=== PATIENT | female | born 1995 | race Caucasian/White ===

== ENCOUNTER 2017-08-03 17:20 | Inpatient (IN) | payer BC, MEDICAID ==
[2017-08-03] MEDS ORDERED: DEXTROSE 5%-LACTATED RINGERS 1,000 ML IV PRN (18:12)
[2017-08-03] MEDS ORDERED: OXYTOCIN/DEXTROSE 5%-WATER 30 UNITS/500 ML BAG IV ONE (18:12)
[2017-08-03] MEDS ORDERED: ONDANSETRON HCL/PF 2 MG/ML VIAL IV PRN (18:12)
[2017-08-03] MEDS ORDERED: RINGER'S SOLUTION,LACTATED 1,000 ML IV PRN (18:12)
[2017-08-03] MEDS: MISOPROSTOL 100 MCG TABLET VG PRN ×2 (18:38→22:45)
[2017-08-04] MEDS: MISOPROSTOL 100 MCG TABLET VG PRN ×2 (02:46→07:00)
--- NOTE | 2017-08-04 09:03 | PN ---
Progess Note - Interim Narrative: 08/04/17 08:52 Subjective-patient is comfortable, feels contractions some edematous she relates that 3 out of 10, denies headache, blurry vision, epigastric pain. She has no complaints. Objective- SVE- fingertip/25/-3, soft, difficult exam due to patient discomfort FHTs- 140s, moderate variability, positive accelerations, no decelerations [place]- every 5 or more minutes contractions with some uterine irritability in between Assessment and plan- Labor-induction with Cytotec placement 4 GBS status-negative Preeclampsia-without severe features, blood pressures continued to be mildly elevated and patient is asymptomatic at this time, continue to monitor closely Continue current plan of care.
[2017-08-04] MEDS: RINGER'S SOLUTION,LACTATED 1,000 ML IV ONE (11:15)
[2017-08-04] MEDS ORDERED: ONDANSETRON HCL/PF 2 MG/ML VIAL IV PRN (11:54)
[2017-08-04] MEDS ORDERED: NALOXONE HCL 1 MG/1 ML SYRG IV PRN (11:54)
[2017-08-04] MEDS ORDERED: BUPIVACAINE HCL/PF 30 ML VIAL EP SCH (12:00)
[2017-08-04] MEDS: BUPIVACAINE HCL/0.9 % NACL/PF 250 ML EP PRN (12:27)
--- NOTE | 2017-08-04 12:28 | OR ---
Anesthesia Procedure Note - Anesthesia Procedure Note Date of Service: 08/04/17 Narrative: Vital Signs - Last Taken Temp 36.7 C 08/03/17 21:05 Pulse 108 H 08/04/17 11:56 Resp 18 08/04/17 11:56 BP 138/93 08/04/17 11:56 Pulse Ox 98 08/04/17 11:56 O2 Oxygen Delivery Method Room Air 08/04/17 12:27 ANESTHESIA PROCEDURE NOTE Date of Procedure: 08/04/2017. Time of procedure: 06/21/2004. Performed by: Junaid Gutierrez CRNA Hospice Nurse: None. Preprocedure diagnosis: Active labor. Post procedure diagnosis: Same. Procedure: Insertion of labor epidural. Indications: The patient is a 22 -year-old female in active labor requesting labor epidural for pain management. Findings: See below. Details of the procedure: The patient was placed in a sitting position. DuraPrep as well as Betadine swabs X3 was applied to the patient's back. Patient was then draped in a sterile fashion. Lidocaine 1% was infiltrated to the skin and subcutaneous tissues at the level of the L3-4 interspace. The epidural space was identified using a 18-gauge Tuohy needle with loss-of- resistance technique. Epidural catheter was inserted to a depth of 15 centimeters at skin. Negative test dose was elicited using 3 mL of 1.5% preservative-free lidocaine plus epinephrine 1 200,000. The epidural catheter was then taped and secured in place. A loading dose of 8 mL of 0.25% preservative-free bupivacaine was administered to the epidural catheter after negative aspiration for blood and CSF. EBL: Minimal. Fluids: N/A. Specimen: N/A. Post procedure condition: The patient tolerated the procedure well. No complications were noted. Thank you for this consultation. Junaid Gutierrez CRNA
--- NOTE | 2017-08-04 13:04 | PN ---
Progess Note - Interim Narrative: 08/04/17 13:02 Subjective-comfortable after epidural Objective- SVE- 2.5/75/-3, membranes stripped, Allen bulb placed with 60 mL's of fluid FHTs- 145, moderate variability, positive accelerations, no decelerations [place]- irregular Assessment and plan- Labor-induction, when Allen balloon is expelled plan for amniotomy. Pitocin now GBS status-negative Preeclampsia-Continue to monitor Continue current plan of care.
--- NOTE | 2017-08-04 16:06 | PN ---
Progess Note - Interim Narrative: 08/04/17 16:05 Subjective-comfortable after epidural Objective- SVE- /-3, [place]ington balloon removed, AROM with copious clear fluid FHTs- 145, moderate variability, positive accelerations, no decelerations [place]- irregular on 6 of pitocin Assessment and plan- Labor-induction, continue titrating Pitocin GBS status-negative Preeclampsia-Continue to monitor Continue current plan of care.
[2017-08-05] MEDS: BUPIVACAINE HCL/0.9 % NACL/PF 250 ML EP PRN (00:46)
[2017-08-05] MEDS: MISOPROSTOL 200 MCG TABLET RC ONE ×2 (03:54→05:04)
[2017-08-05] MEDS: RINGER'S SOLUTION,LACTATED 1,000 ML IV ONE (04:01)
[2017-08-05] MEDS ORDERED: GLYCERIN/WITCH HAZEL LEAF 40 APPL BOX TP PRN (04:13)
[2017-08-05] MEDS ORDERED: BISACODYL 10 MG SUPP.RECT RC PRN (04:13)
[2017-08-05] MEDS ORDERED: MISOPROSTOL 100 MCG TABLET RC ONE (04:13)
[2017-08-05] MEDS ORDERED: OXYTOCIN/DEXTROSE 5%-WATER 30 UNITS/500 ML BAG IV ONE (04:13)
[2017-08-05] MEDS ORDERED: SENNOSIDES 8.6 MG TABLET PO PRN (04:13)
[2017-08-05] MEDS ORDERED: HYDROCORTISONE 30 APPL TUBE TP PRN (04:13)
[2017-08-05] MEDS ORDERED: oxyCODONE HCL/ACETAMINOPHEN 1 TAB TABLET PO PRN (04:13)
[2017-08-05] MEDS ORDERED: BENZOCAINE/MENTHOL 81 SPRAY CAN TP PRN (04:13)
--- NOTE | 2017-08-05 04:19 | OR ---
Operative Report - Dictated Report Narrative: Spontaneous Vaginal Delivery Viable male with APGARS of 8 at 1 minute and 9 at 5 minutes. He delivered at 0337. Presentation was YANELI. A loose nuchal cord was reduced over the head prior to delivery of the shoulders. The right anterior shoulder delivered with gentle downward traction followed by the posterior shoulder and the remainder of the baby. Baby was placed on the maternal abdomen and dried and stimulated and spontaneous cry was noted. The cord was clamped and cut after 60 seconds. Weight: 3799 g Placenta was delivered spontaneously and intact. Vigorous bleeding was noted. Bimanual exam expressed no clots and the placenta appeared intact. Fundal massage was performed, Pitocin increased to 30 milliunits and Cytotec 1000 g was placed rectally. Patient felt nauseous and appeared pale. Blood pressures dropped to 70s over 30s and patient was laid flat and fluid bolus performed. Bleeding had subsided at this time. Patient was feeling better although blood pressures were still in the mid 70s over 40s. Her pulse was up to 150s and was normalizing and patient's color and symptoms and blood pressure continued to improve. Second-degree midline vaginal laceration that was repaired with 2-0 Vicryl. Estimated blood loss: 500 ml Mother and baby tolerated delivery well. History for MU Definition: * The number of deliveries resulting in a live the patient experienced prior to current hospitalization * The previous delivery of live twins or any live multiple gestation is considered one live event. *If primagravida or nulliparous is documented select zero for the number of previous live births. Live Events: 0
[2017-08-05] MEDS: oxyCODONE HCL/ACETAMINOPHEN 1 TAB TABLET PO PRN ×3 (05:07→19:05)
[2017-08-05] MEDS: DOCUSATE SODIUM 100 MG CAPSULE PO SCH ×2 (11:16→21:03)
[2017-08-05] MEDS: IBUPROFEN 800 MG TABLET PO PRN ×2 (11:19→19:05)
[2017-08-05] MEDS: ENOXAPARIN SODIUM 40 MG/0.4 ML SYRG SC SCH (11:19)
[2017-08-05] MEDS ORDERED: RHO(D) IMMUNE GLOBULIN 300 MCG DISP.SYRIN IM ONE (12:45)
[2017-08-06] MEDS: oxyCODONE HCL/ACETAMINOPHEN 1 TAB TABLET PO PRN ×2 (08:42→15:39)
[2017-08-06] MEDS: IBUPROFEN 800 MG TABLET PO PRN ×2 (08:42→15:39)
[2017-08-06] MEDS: DOCUSATE SODIUM 100 MG CAPSULE PO SCH ×2 (08:43→20:34)
[2017-08-06] MEDS: ENOXAPARIN SODIUM 40 MG/0.4 ML SYRG SC SCH (15:03)
--- NOTE | 2017-08-06 16:33 | PN ---
Subjective - Date and Time Seen Date: 08/06/17 Time: 16:32 Objective - Vitals Vitals: Last Vital Signs Temp 36.6 C 08/06/17 09:54 Pulse 108 H 08/06/17 09:54 Resp 20 08/06/17 09:54 BP 135/60 08/06/17 09:54 Pulse Ox 97 08/05/17 23:30 Patient denies complaints. No headache, visual changes, epigastric pain, or edema. Lochia wnl Abdomen - soft, nontender Uterus - firm, at umbilicus - 1 No calf tenderness DTR-2/4, no clonus Impression: day #1 - s/p spontaneous vaginal delivery. Mild preeclampsia-resolving. Plan: Continue routine care Cauti Physician Documentation - Urinary Catheter Management Urethral (Allen) Date of Insertion: 08/04/17 Time of Insertion: 12:45
[2017-08-07] MEDS: IBUPROFEN 800 MG TABLET PO PRN (07:04)
[2017-08-07 07:35] VITALS: BP 134/72
--- NOTE | 2017-08-07 08:50 | PN ---
Subjective - Date and Time Seen Date: 08/07/17 Time: 08:49 Objective - Vitals Vitals: Last Vital Signs Temp 36.7 C 08/07/17 07:27 Pulse 96 08/07/17 07:27 Resp 16 08/07/17 07:27 BP 134/72 08/07/17 07:27 Pulse Ox 98 08/07/17 07:27 Patient denies complaints. Lochia wnl Abdomen - soft, nontender Uterus - firm, at umbilicus - 2 No calf tenderness Impression: day #2 - s/p spontaneous vaginal delivery. Preeclampsia- resolved. Plan: Routine discharge instructions. Preeclampsia precautions. Follow-up in one week for blood pressure check. Cauti Physician Documentation - Urinary Catheter Management Urethral (Allen) Date of Insertion: 08/04/17 Time of Insertion: 12:45
== END 2017-08-07 11:30 | disposition home or self-care (01) | DRG 774 ==
LOC: OB 17:20
PROVIDERS: ADMIT Obstetrics & Gynecology Gynecologic Oncology; ATTEND Obstetrics & Gynecology Gynecologic Oncology
PROC: 10E0XZZ Delivery of Products of Conception, External Approach (ICD-10-PCS; principal; 2017-08-05)
PROC: 0KQM0ZZ Repair Perineum Muscle, Open Approach (ICD-10-PCS; 2017-08-05)
PROC: 10907ZC Drainage of Amniotic Fluid, Therapeutic from Products of Conception, Via Natural or Artificial Opening (ICD-10-PCS; 2017-08-05)
PROC: 4A1HXCZ Monitoring of Products of Conception, Cardiac Rate, External Approach (ICD-10-PCS; 2017-08-05)
PROC: 00HU33Z Insertion of Infusion Device into Spinal Canal, Percutaneous Approach (ICD-10-PCS; 2017-08-05)
DX: O14.04 Mild to moderate pre-eclampsia, complicating childbirth (principal); O72.1 Other immediate postpartum hemorrhage; Z68.42 Body mass index [BMI] 45.0-49.9, adult; O70.1 Second degree perineal laceration during delivery; O69.81X0 Labor and delivery complicated by cord around neck, without compression, not applicable or unspecified; O99.02 Anemia complicating childbirth; D64.9 Anemia, unspecified; E66.9 Obesity, unspecified; Z3A.38 38 weeks gestation of pregnancy; Z37.0 Single live birth

== ENCOUNTER 2020-02-21 05:55 | Inpatient (IN) ==
[2020-02-21] MEDS ORDERED: RINGER'S SOLUTION,LACTATED 1,000 ML IV ONE (06:02)
[2020-02-21] MEDS ORDERED: OXYTOCIN/DEXTROSE 5%-WATER 30 UNITS/500 ML BAG IV ONE (06:02)
[2020-02-21] MEDS ORDERED: BUTORPHANOL TARTRATE 2 MG/ML VIAL IV PRN ×2 (06:02)
[2020-02-21] MEDS ORDERED: LIDOCAINE HCL 50 ML VIAL PERI PRN (06:02)
[2020-02-21] MEDS ORDERED: ONDANSETRON 4 MG TAB.RAPDIS PO PRN (06:02)
[2020-02-21 06:29] LABS: Hematocrit 34.4 % (37.0-47.0); Hemoglobin 11.3 gm/dL (12.5-16.0); Mean Cell Volume 88.7 fl (78-100); Mean Corpuscular Hemoglobin 29.1 pg (27-31); Mean Corpuscular Hgb Conc 32.8 g/dl (32-36); Mean Platelet Volume 9.9 fl (8-12.5); Neutrophil # 6.6 K/mm3 (1.3-6.0); Neutrophil % 71.1 % (42-75.0); Platelet Count 245 K/mm3 (150-450); Red Blood Count 3.88 M/mm3 (4.2-5.4); Red Cell Distribution Width 13.2 % (11.5-14.0); White Blood Count 9.3 K/mm3 (4.0-10.5)
[2020-02-21] MEDS: RINGER'S SOLUTION,LACTATED 1,000 ML IV PRN ×3 (06:40→14:30)
[2020-02-21 06:41] LABS: Albumin * 2.6 gm/dl (3.4-5.0); Anion Gap 15.8 mmol/L (6.8-13.8); BUN/Creatinine Ratio 9.4 (9.0-21.6); Bilirubin, Total 0.3 mg/dL (0.0-1.1); Ca. Corrected For Albumin 9.8 mg/dL (8.4-10.2); Carbon Dioxide 20.7 mmol/L (24-32.6); Potassium 3.5 mmol/L (3.4-4.6); Total Protein 6.6 gm/dL (6.2-8.2)
[2020-02-21] MEDS ORDERED: OXYTOCIN/0.9 % SODIUM CHLORIDE 30 UNITS/500 ML BAG IV ONE ×2 (07:00→22:34)
--- NOTE | 2020-02-21 08:30 | HP ---
Chief Complaint - Chief Complaint Date of Service: 02/21/20 Time of Service: 08:26 Chief Complaint: Induction of labor History of Present Illness: 24 year old at 39w 0d who presents to L&D for a medical IOL due to CHTN. She denies ctx, vb or lof. Fetus is active. Medical History (Last Reviewed 02/21/20 @ 08:27 by Peggy Muñoz MD) Obesity Onset Date: ~01/11/17 Preeclampsia Onset Date: ~07/2017 Surgical History: Surgical History (Last Reviewed 02/21/20 @ 08:27 by Peggy Muñoz MD) H/O wisdom tooth extraction Onset Date: ~2013 Family History: Family History (Last Reviewed 02/21/20 @ 08:27 by Peggy Muñoz MD) Mother Alive and well Father Alive and well Social History: (Last Reviewed 02/21/20 @ 08:27 by Peggy Muñoz MD) Social History: adopted: No Marital status: household members: children, significant other number of children: 1 current occupational status: employed current occupation: [employer] education level completed: some college, no degree Sexually Active: Yes Service: No Tobacco: Smoking Status: Never smoker Alcohol: alcohol intake: never Substance Use: substance use type: does not use Dietary Habits: caffeine: No Pets: pets and animals: cat(s) Review Of Systems (GEN) - Review of Systems Generalized/Overall Review: Present: No Symptoms Reported Misc: All systems neg except as marked Allergies/Adverse Reactions: Allergies Allergy/AdvReac Type Severity Reaction Status Date / Time azithromycin [From Zithromax] Allergy Hives Verified 02/21/20 06:11 Home Medications: HOME MEDICATIONS Vits96/Iron Fum/Folic [ S] 1 tab PO DAILY #90 tab 08/07/17 [Last Taken 02/20/20] ferrous sulfate 325 mg (65 mg iron) tablet 325 mg PO DAILY 08/17/19 [Last Taken 02/20/20] aspirin 81 mg chewable tablet 2 tab PO DAILY tab 11/08/19 [Last Taken 02/20/20] Exam - Exam Vital Signs: Vital Signs - Last Taken Temp 36.7 C 02/21/20 06:15 Pulse 104 H 02/21/20 06:15 Resp 16 02/21/20 06:15 BP 136/80 02/21/20 06:15 Pulse Ox 97 02/21/20 06:15 Constitutional: Present: Alert, Oriented x3, Cooperative, No distress ENT Exam: Present: hearing grossly normal Eye Exam: bilateral eye: normal inspection Neck: Present: normal inspection Back Exam: Present: normal inspection Respiratory: Present: lungs clear, normal breath sounds, no respiratory distress Cardiovascular/Chest: Present: regular rate, rhythm Abdomen: Present: soft, nontender, nondistended, no rebound tenderness /Rectal: Present: Other - 1.5/50/-3 Extremity: Present: non-tender, no calf tenderness Skin Exam: Present: normal color, warm/dry, no cyanosis Appearance: Present: appropriate appearance, appropriate insight, neat, no memory impairment Eye contact: Present: cooperative, good eye contact, normal speech Thoughts: Present: normal thought pattern Diagnostic Studies: Abnormal Lab Results 02/21/20 02/21/20 Range/Units 06:20 06:20 RBC 3.88 L (4.2-5.4) M/mm3 Hgb 11.3 L (12.5-16.0) gm/dL Hct 34.4 L (37.0-47.0) % Immature Gran % (Auto) 0.90 H (0.001-0.429) % Immature Gran # (Auto) 0.08 H (0.000-0.0310) K/mm3 Neutrophils # 6.6 H (1.3-6.0) K/mm3 Carbon Dioxide 20.7 L (24-32.6) mmol/L Anion Gap 15.8 H (6.8-13.8) mmol/L Random Glucose 141 H (70-110) mg/dL ALT 14 L (19-67) U/L Albumin 2.6 L (3.4-5.0) gm/dl Laboratory Results WBC 9.3 K/mm3 (4.0-10.5) 02/21/20 06:20 RBC 3.88 M/mm3 (4.2-5.4) L 02/21/20 06:20 Hgb 11.3 gm/dL (12.5-16.0) L 02/21/20 06:20 Hct 34.4 % (37.0-47.0) L 02/21/20 06:20 MCV 88.7 fl (78-100) 02/21/20 06:20 MCH 29.1 pg (27-31) 02/21/20 06:20 MCHC 32.8 g/dl (32-36) 02/21/20 06:20 RDW 13.2 % (11.5-14.0) 02/21/20 06:20 Plt Count 245 K/mm3 (150-450) 02/21/20 06:20 MPV 9.9 fl (8-12.5) 02/21/20 06:20 Immature Gran % (Auto) 0.90 % (0.001-0.429) H 02/21/20 06:20 Immature Gran # (Auto) 0.08 K/mm3 (0.000-0.0310) H 02/21/20 06:20 Neutrophils % 71.1 % (42-75.0) 02/21/20 06:20 Lymphocytes % 21.6 % (20-51) 02/21/20 06:20 Monocytes % 5.3 % (0.0-9) 02/21/20 06:20 Eosinophils % 0.8 % (0.0-3.0) 02/21/20 06:20 Basophils % 0.3 % (0.0-1.0) 02/21/20 06:20 Nucleated RBC % 0.0 k/mm3 (0-1) 02/21/20 06:20 Neutrophils # 6.6 K/mm3 (1.3-6.0) H 02/21/20 06:20 Lymphocytes # 2.00 k/mm3 (1.5-3.5) 02/21/20 06:20 Monocytes # 0.5 k/mm3 (0.0-1.0) 02/21/20 06:20 Eosinophils # 0.1 k/mm3 (0.0-0.7) 02/21/20 06:20 Absolute Basophils 0.0 k/mm3 (0.0-0.1) 02/21/20 06:20 Sodium 135 mmol/L (132-142) 02/21/20 06:20 Plasma Sodium 136 mmol/L (130-142) 02/21/20 06:20 Potassium 3.5 mmol/L (3.4-4.6) 02/21/20 06:20 Chloride 102 mmol/L (97-106) 02/21/20 06:20 Carbon Dioxide 20.7 mmol/L (24-32.6) L 02/21/20 06:20 Anion Gap 15.8 mmol/L (6.8-13.8) H 02/21/20 06:20 BUN 8 mg/dL (3-23) 02/21/20 06:20 Creatinine 0.85 mg/dL (0.4-1.4) 02/21/20 06:20 Est GFR (Non-Af Amer) 88 mL/min (60-130) D 02/21/20 06:20 BUN/Creatinine Ratio 9.4 (9.0-21.6) 02/21/20 06:20 Random Glucose 141 mg/dL (70-110) H 02/21/20 06:20 Calcium 9.0 mg/dL (7.9-10.9) 02/21/20 06:20 Calcium Adj for Albumin 9.8 mg/dL (8.4-10.2) 02/21/20 06:20 Total Bilirubin 0.3 mg/dL (0.0-1.1) 02/21/20 06:20 AST 17 U/L (0-48) 02/21/20 06:20 ALT 14 U/L (19-67) L 02/21/20 06:20 Alkaline Phosphatase 122 U/L (50-170) 02/21/20 06:20 Total Protein 6.6 gm/dL (6.2-8.2) 02/21/20 06:20 Albumin 2.6 gm/dl (3.4-5.0) L 02/21/20 06:20 Blood Type A Negative 02/21/20 06:20 Antibody Screen Negative 02/21/20 06:20 Assessment/Plan - Narrative Narrative: 24 year old at 39w 0d 1. IOL for CHTN: the patient is currently on pitocin 2. GBS negative: prophylaxis not indicated 3. Rh negative: s/p Rhogam, collect cord blood
--- NOTE | 2020-02-21 11:55 | PN ---
Kelsey Note - Interim Date: 02/21/20 Time: 11:54 Narrative: 02/21/20 11:54 Patient uncomfortable with examination cvx 2/70/-2 Attempted AROM but patient cannot tolerate exam Wait until patient has epidural to AROM FHT cat 1
[2020-02-21] MEDS ORDERED: BUPIVACAINE HCL/0.9 % NACL/PF 250 ML EP PRN (13:27)
[2020-02-21] MEDS ORDERED: NALOXONE HCL 1 MG/1 ML SYRG IV PRN (13:27)
[2020-02-21] MEDS ORDERED: fentaNYL CITRATE/PF 50 MCG/ML AMPUL IT SCH (13:30)
--- NOTE | 2020-02-21 13:46 | ANES ---
Anesthesia Pre Procedure Eval Vitals/Labs: Last Vital Signs Temp 36.7 C 02/21/20 06:15 Pulse 104 H 02/21/20 06:15 Resp 16 02/21/20 06:15 BP 136/80 02/21/20 06:15 Pulse Ox 97 02/21/20 06:15 HOME MEDICATIONS Vits96/Iron Fum/Folic [ S] 1 tab PO DAILY #90 tab 08/07/17 [Last Taken 02/20/20] ferrous sulfate 325 mg (65 mg iron) tablet 325 mg PO DAILY 08/17/19 [Last Taken 02/20/20] aspirin 81 mg chewable tablet 2 tab PO DAILY tab 11/08/19 [Last Taken 02/20/20] Allergies/Adverse Reactions: Allergies Allergy/AdvReac Type Severity Reaction Status Date / Time azithromycin [From Zithromax] Allergy Hives Verified 02/21/20 06:11 - Planned Procedure Planned Procedure: medical induction for chonic hypertension Medication List Reviewed:: Yes Allergies Verified: Yes Medical History (Last Reviewed 02/21/20 @ 13:44 by Berlin Yoder CRNA) Obesity Onset Date: ~01/11/17 Preeclampsia Onset Date: ~07/2017 Surgical History (Last Reviewed 02/21/20 @ 13:44 by Berlin Yoder CRNA) H/O wisdom tooth extraction Onset Date: ~2013 Family History (Last Reviewed 02/21/20 @ 13:44 by Berlin Yoder CRNA) Mother Alive and well Father Alive and well - Family Anesthesia History Family History:: no untoward family reactions to anesthesia, no familial bleeding tendencies, no family history of clotting disorders, no family history of premature - Airway/Neck/Teeth Within Normal Limits:: Yes Teeth Condition: intact Neck Exam: full range of motion Mallampatti Score: 2 Thyromental (T-M) distance: > 6 cm Mandibulo Hyoid distance: > 3 cm - Respiratory Respiratory Physical: lungs clear Sleep Apnea currently treated: No Sleep Apnea by current assessment: No - Cardiovascular Tolerate Activity: Fair Heart Sounds: S1 & S2, Regular - Gastrointestinal NPO since: Today - Anesthesia Assessment and Plan ASA Class: PS, III, E Anesthesia Type Plan: Epidural - CSE for labor analgesia
--- NOTE | 2020-02-21 14:08 | ANES ---
Post Anesthesia Discharge - Transfer of Care Transfer of Care handoff given to nurse: Yes - Discharge from PACU Discharge from PACU when meets criteria: Yes - Comfortable post CSE.
--- NOTE | 2020-02-21 14:08 | ANES ---
Anesthesia Procedure Note Procedure Note: ANESTHESIA PROCEDURE NOTE Date of Procedure: 02/21/2020 Time of procedure: 1345. Performed by: HIGINIO Wei CRNA, MSN [employer] Supervisor: Kathy Fernández RN. Preprocedure diagnosis: Active labor, labor pain. Post procedure diagnosis: Same. Procedure:Epidural for labor analgesia L3-4. Indications: Labor pain. Findings: See below. Details of the procedure: The patient was placed on the side of the bed in sitting positionand prepped with DuraPrep then draped in a sterile fashion. Lidocaine 1% was infiltrated to the skin and subcutaneous tissues at the level of the L3-4 interspace. An 18-gauge Touhy needle was used to approach the epidural space with loss of resistance technique. Once loss of resistance was achieved a 27-gauge spinal needle was passed through the epidural needle and CSF was contacted. After CSF returned, 20 mcg of fentanyl was injected in the spinal needle was removed the epidural catheter was then threaded approximately 4 cm in the epidural needle was removed. The catheter was taped in place and after careful aspiration 3 mL of 1.5% lidocaine with 1-200,000 epinephrine was injected without change in maternal heart rate or sensorium. . EBL: Minimal. Fluids: N/A. Specimen: N/A. Post procedure condition: The patient tolerated the procedure well with good relief. No complications were noted. Thank you for this consultation. Berlin Yoder CRNA, ARNP, MSN
--- NOTE | 2020-02-21 14:23 | ANES ---
Post Anesthesia Assessment - Vital Signs Vitals: Last Vital Signs Temp 36.7 C 02/21/20 06:15 Pulse 104 H 02/21/20 06:15 Resp 16 02/21/20 06:15 BP 136/80 02/21/20 06:15 Pulse Ox 97 02/21/20 06:15 Airway Patency: Normal - Mental Status Level Of Consciousness: Awake, Alert, Appropriate - Pain Level Pain Score: 0 - N/V Assessment Nausea/Vomiting Presence: None Dehydration:: No
--- NOTE | 2020-02-21 16:28 | PN ---
Kelsey Note - Interim Date: 02/21/20 Time: 16:24 Narrative: 02/21/20 16:24 Patient is comfortable with epidural cvx 3-4/60/-1 AROM for a large amount of clear fluid FHT cat 1 ctx q 1-2 min
[2020-02-21] MEDS: ONDANSETRON HCL/PF 2 MG/ML VIAL IV PRN ×2 (19:58→23:48)
[2020-02-21] MEDS ORDERED: CARBOPROST TROMETHAMINE 250 MCG/ML AMPUL IM ONE ×2 (22:23→23:35)
[2020-02-21] MEDS ORDERED: HYDROCORTISONE 30 APPL TUBE TP PRN (22:34)
[2020-02-21] MEDS ORDERED: diphenhydrAMINE HCL 25 MG CAPSULE PO PRN (22:34)
[2020-02-21] MEDS ORDERED: BENZOCAINE/MENTHOL 81 SPRAY CAN TP PRN (22:34)
[2020-02-21] MEDS ORDERED: HYDROcodone/ACETAMINOPHEN 1 EACH TABLET PO PRN ×2 (22:34)
[2020-02-21] MEDS ORDERED: BISACODYL 10 MG SUPP.RECT RC PRN (22:34)
[2020-02-21] MEDS ORDERED: GLYCERIN/WITCH HAZEL LEAF 40 APPL BOX TP PRN (22:34)
[2020-02-21] MEDS ORDERED: SENNOSIDES 8.6 MG TABLET PO PRN (22:34)
--- NOTE | 2020-02-21 22:45 | OR ---
Operative Report - Dictated Report Narrative: Date of delivery: 02/21/2020 Time of delivery: 2204 Gender: female weight: 3191 grams APGARS: 02/26 Procedure: Description of the procedure: The patient is a 24 year old at 39w 0d who presented to labor and delivery for a medical IOL due to CHTN. She was induced with pitocin and AROM was done for augmentation of labor. She progressed to complete dilation. She delivered a viable female in YANELI presentation. The shoulders delivered without any difficulty followed by the rest of the infant. Cord clamping was delayed for 60 seconds due to vigorous infant. The cord was clamped and cut. Cord blood was collected. A perineal laceration was repaired in the standard fashion using 3-0 rapide. A supraurethral laceration was repaired using 4-0 rapide. Hemostasis was adequate. Cytotec and hemabate were administered due to a PPH. The lower uterine segment was examined and no clot was found and thus a manual uterine exploration was not performed. During uterine massage a large clot was expressed and at this time the bleeding has improved. Vital signs are stable. EBL: 600 mL which is consistent with a PPH Complications: none Specimens: cord blood History for Definition: * The number of deliveries resulting in a live the patient experienced prior to current hospitalization * The previous delivery of live twins or any live multiple gestation is considered one live event. *If primagravida or nulliparous is documented select zero for the number of previous live births. Live Events: 1
[2020-02-22] MEDS ORDERED: MISOPROSTOL 200 MCG TABLET RC ONE (00:15)
[2020-02-22] MEDS ORDERED: RHO(D) IMMUNE GLOBULIN 1,500 UNIT SYRINGE IM ONE ×2 (02:00→11:00)
[2020-02-22] MEDS: DOCUSATE SODIUM 100 MG CAPSULE PO SCH ×2 (08:41→20:46)
[2020-02-22] MEDS: IBUPROFEN 800 MG TABLET PO PRN ×2 (09:56→18:48)
--- NOTE | 2020-02-22 16:59 | PN ---
Subjective - Date and Time Seen Date: 02/22/20 Time: 16:58 Subjective Narrative: Patient without complaints Objective Objective Narrative: See vital signs - Review of Systems Generalized/Overall Review: Reports: No Symptoms Reported Misc: All systems neg except as marked - Vitals Vitals: Last Vital Signs Temp 36.7 C 02/22/20 14:00 Pulse 84 02/22/20 14:00 Resp 18 02/22/20 14:00 BP 115/59 02/22/20 14:00 Pulse Ox 99 02/22/20 14:00 - Exam Constitutional: Present: Alert, Oriented x3, Cooperative, No distress ENT Exam: Present: hearing grossly normal Abdomen: Present: soft, nontender, nondistended - fundus is firm Extremity: Present: non-tender, no calf tenderness Skin Exam: Present: normal color, warm/dry, no cyanosis Neurologic: Present: alert, normal mood/affect, oriented x 3 Appearance: Present: appropriate appearance, appropriate insight, neat, no memory impairment Eye contact: Present: cooperative, good eye contact, normal speech Thoughts: Present: normal thought pattern Cauti Physician Documentation - Urinary Catheter Management Urethral (Allen) Urethral Indwelling: No Date of Insertion: 02/21/20 Time of Insertion: 14:55 Date of Removal: 02/21/20 Time of Removal: 22:00 Assessment/Plan Plan Narrative: PPD 1 s/p Doing well Discharge tomorrow
[2020-02-23] MEDS: IBUPROFEN 800 MG TABLET PO PRN (06:38)
[2020-02-23 08:38] VITALS: BP 127/63
--- NOTE | 2020-02-23 09:26 | PN ---
Subjective - Date and Time Seen Date: 02/23/20 Time: 09:26 Objective - Vitals Vitals: Last Vital Signs Temp 36.3 C 02/23/20 08:37 Pulse 85 02/23/20 08:37 Resp 18 02/23/20 08:37 BP 127/63 02/23/20 08:37 Pulse Ox 99 02/23/20 08:37 Patient denies complaints. Lochia wnl abdomen - soft, nontender Uterus -firm, at umbilicus - 2 No calf tenderness Impression: day #2 - s/p spontaneous vaginal delivery. Chronic hypertension-resolved Plan: Routine discharge instructions. Follow-up with Dr. Muñoz as scheduled. Preeclampsia precautions. Cauti Physician Documentation - Urinary Catheter Management Urethral (Allen) Urethral Indwelling: No Date of Insertion: 02/21/20 Time of Insertion: 14:55 Date of Removal: 02/21/20 Time of Removal: 22:00
[2020-02-23] MEDS: DOCUSATE SODIUM 100 MG CAPSULE PO SCH (11:46)
== END 2020-02-23 11:00 | disposition home or self-care (01) | DRG 806 ==
LOC: OB 05:55
PROVIDERS: ADMIT Obstetrics & Gynecology; ATTEND Obstetrics & Gynecology